=== PATIENT | male | born 1980 | race Caucasian/White ===

== ENCOUNTER 2016-08-10 12:14 | Emergency (ER) | payer OTHER ==
--- NOTE | 2016-08-10 13:58 | REP ---
Left hand series: Four views. History: Trauma. Findings: Four views of the left hand demonstrate soft tissue swelling dorsally over the metacarpals. No fracture is seen. No opaque foreign body is appreciated. No other change from left wrist views dated November 21, 2014. Impression: Diffuse dorsal soft tissue swelling. No fracture seen. Signed by Rasta López MD 08/10/2016 02:39 P
--- NOTE | 2016-08-10 14:52 | EDDOCDS ---
Physician Documentation [facility] Name: Nate Dave Age: 36 yrs Sex: Male : 1980 Arrival Date: 08/10/2016 Time: 12:14 Bed Triage 2 Private MD: Baljinder - Complete Info On Cds Disposition: 08/10/16 14:43 Discharged to Home/Self Care. Impression: Contusion of left hand. - Condition is Stable. - Discharge Instructions: Hand Contusion. - Medication Reconciliation, Local Pharmacy Hours form. - Follow up: Private Physician; When: As needed; Reason: Recheck today's complaints. Follow up: Emergency Department; When: As needed; Reason: Worsening of conditions. - Problem is new. - Symptoms are unchanged. Historical: - Allergies: no known allergies; - Home Meds: 1. BuSpar 5 mg Oral tab daily (Last dose: 08/09/2016) 2. Citalopram 30mg Oral once daily (Last dose: 08/09/2016) 3. multivitamin Oral cap - PMHx: Depression; - PSHx: Hernia repair; - Social history: Smoking status: Patient states former smoker of tobacco. No barriers to communication noted, The patient speaks fluent [place] Leonean. - Family history: Not pertinent. - : The pt / caregiver states he / she is not on anticoagulants. Home medication list is obtained from the patient. - Exposure Risk Screening:: pt states went to [facility] last month. Vital Signs: 08/10 12:19 BP 117 / 66 RA Sitting (auto/reg); Pulse 70 RA; Resp 18 S; Temp 97.1(T); Pulse Ox 98% mt4 on R/A; Weight 106.59 kg / 234.99 lbs (R); Height 74 in. (187.96 cm) (R); Pain 1/10; 14:50 BP 139 / 71; Pulse 66; Resp 16; Pulse Ox 98% on R/A; Pain 1/10; kr3 12:19 Body Mass Index 30.17 (106.59 kg, 187.96 cm) mt4 MDM: 12:33 Hand, Complete Ordered. EDMS Signatures: Dispatcher [employer] EDMS Fatmata Miller RN RN kr3 Manuel Garza PAColbyC PA-C ar2 Daniel Cade RN RN jf3 The chart was reviewed and I authenticate all verbal orders and agree with the evaluation and treatment provided.Corrections: (The following items were deleted from the chart) 12:30 12:29 Exposure Risk Screening: None identified. jf3 jf3 MTDD
--- NOTE | 2016-08-10 14:53 | EDDOCDS ---
Nurse's Notes [facility] Name: Nate Dave Age: 36 yrs Sex: Male : 1980 Arrival Date: 08/10/2016 Time: 12:14 Bed Triage 2 Private MD: Other - Complete Info On Cds Diagnosis: Contusion of left hand Presentation: 08/10 12:26 Presenting complaint: Patient states: "I think I broke my hand. I was moving some boxes jf3 yesterday and I ran into a wall". Left hand affected. Incident happened at approx 1100. Adult Sepsis Screening: The patient does not have new or worsening altered mentation. Patient's respiratory rate is less than 22. Systolic blood pressure is greater than 100. Patient has a qSOFA score of 0- Negative Sepsis Screen. Suicide/Homicide risk assessment- the patient denies having any suicidal and/or homicidal ideations and does not present with any other emotional, behavioral or mental health complaints. Status: The patient is an active duty human services assistant. Transition of care: patient was not received from another setting of care. 12:26 Acuity: QING Level 4 jf3 12:26 Method Of Arrival: Walkin/Carried/Asstd jf3 Triage Assessment: 12:29 General: Appears in no apparent distress, comfortable, Behavior is cooperative. Pain: jf3 Location: left hand Pain currently is 1 out of 10 on a pain scale. Pt Declines HIV testing. Musculoskeletal: Circulation, motion, and sensation intact Capillary refill < 3 seconds Swelling present in dorsum of left hand. Historical: - Allergies: no known allergies; - Home Meds: 1. BuSpar 5 mg Oral tab daily (Last dose: 08/09/2016) 2. Citalopram 30mg Oral once daily (Last dose: 08/09/2016) 3. multivitamin Oral cap - PMHx: Depression; - PSHx: Hernia repair; - Social history: Smoking status: Patient states former smoker of tobacco. No barriers to communication noted, The patient speaks fluent Vietnamese. - Family history: Not pertinent. - : The pt / caregiver states he / she is not on anticoagulants. Home medication list is obtained from the patient. - Exposure Risk Screening:: pt states went to [facility] last month. Screenin:50 Screening information is obtained from the patient. Fall risk: No risks identified. kr3 Assistance ADL's: requires no assistance with activities of daily living. Abuse/DV Screen: The patient / caregiver reports he/she is: not in a situation that causes fear, pain or injury. Nutritional screening: No deficits noted. Advance Directives: Currently, there is no health care proxy. home support is adequate. Assessment: 14:51 Reassessment: Patient appears in no apparent distress at this time. Musculoskeletal: kr3 Range of motion intact in all extremities. Vital Signs: 12:19 BP 117 / 66 RA Sitting (auto/reg); Pulse 70 RA; Resp 18 S; Temp 97.1(T); Pulse Ox 98% mt4 on R/A; Weight 106.59 kg (R); Height 74 in. (187.96 cm) (R); Pain 1/10; 14:50 BP 139 / 71; Pulse 66; Resp 16; Pulse Ox 98% on R/A; Pain 1/10; kr3 12:19 Body Mass Index 30.17 (106.59 kg, 187.96 cm) mt4 Vitals: 12:19 Log In Time: August 10, 2016 at 12:14. mt4 ED Course: 12:18 Patient visited by Federica Meza. mt4 12:18 Other - Complete Info On Cds is Private Physician. mt4 12:18 Patient moved to Waiting mt4 12:20 Patient moved to Pre RCE mt4 12:28 Triage Initiated jf3 14:12 Patient moved to Triage 2 sew 14:34 Hand, Complete Returned. EDMS 14:36 [facility] ar2 14:36 Dean Boland MD is Attending Physician. ar2 14:36 Patient visited by Manuel Garza PA-C. ar2 14:51 The patient / caregiver is instructed regarding the plan of care and ED course. Patient kr3 has correct armband on for positive identification. 14:51 No IV's were initiated during this patient's visit. No procedures done that require kr3 assistance. Order Results: Radiology Order: Hand, Complete Test: Hand, Complete REASON FOR EXAMINATION: Trauma; Left hand series: Four views.; ; History: Trauma.; ; Findings: Four views of the left hand demonstrate soft tissue swelling dorsally; over the metacarpals. No fracture is seen. No opaque foreign body is; appreciated. No other change from left wrist views dated November 21, 2014.; ; Impression:; ; Diffuse dorsal soft tissue swelling. No fracture seen.; ; ; ; ; Unreviewed; Outcome: 14:43 Discharge ordered by Provider. ar2 14:50 Discharge Assessment: patient administered narcotics - no. The following High Risk kr3 Discharge criteria are identified: None. Discharged to home ambulatory. Condition: stable. Discharge instructions given to patient, Instructed on discharge instructions, follow up and referral plans. Demonstrated understanding of instructions, Pt was receptive of discharge instructions/ teaching. No special radiology studies were completed. Property sent home with patient. 14:51 Patient left the ED. kr3 Signatures: Dispatcher [employer] EDMS Fatmata MillerRN RN kr3 Manuel Garza, ALMA PA-C ar2 Federica Meza mt4 Bibi Aguillon Justin,RN RN jf3 Corrections: (The following items were deleted from the chart) 12:30 12:29 Exposure Risk Screening: None identified. jf3 jf3 MTDD
--- NOTE | 2016-08-12 15:52 | EDDOCDS ---
Nurse's Notes [facility] Name: Nate Dave Age: 36 yrs Sex: Male : 1980 Arrival Date: 08/10/2016 Time: 12:14 Bed Triage 2 Private MD: Other - Complete Info On Cds Diagnosis: Contusion of left hand Presentation: 08/10 12:26 Presenting complaint: Patient states: "I think I broke my hand. I was moving some boxes jf3 yesterday and I ran into a wall". Left hand affected. Incident happened at approx 1100. Adult Sepsis Screening: The patient does not have new or worsening altered mentation. Patient's respiratory rate is less than 22. Systolic blood pressure is greater than 100. Patient has a qSOFA score of 0- Negative Sepsis Screen. Suicide/Homicide risk assessment- the patient denies having any suicidal and/or homicidal ideations and does not present with any other emotional, behavioral or mental health complaints. Status: The patient is an active duty division service manager. Transition of care: patient was not received from another setting of care. 12:26 Acuity: QING Level 4 jf3 12:26 Method Of Arrival: Walkin/Carried/Asstd jf3 Triage Assessment: 12:29 General: Appears in no apparent distress, comfortable, Behavior is cooperative. Pain: jf3 Location: left hand Pain currently is 1 out of 10 on a pain scale. Pt Declines HIV testing. Musculoskeletal: Circulation, motion, and sensation intact Capillary refill < 3 seconds Swelling present in dorsum of left hand. Historical: - Allergies: no known allergies; - Home Meds: 1. BuSpar 5 mg Oral tab daily (Last dose: 08/09/2016) 2. Citalopram 30mg Oral once daily (Last dose: 08/09/2016) 3. multivitamin Oral cap - PMHx: Depression; - PSHx: Hernia repair; - Social history: Smoking status: Patient states former smoker of tobacco. No barriers to communication noted, The patient speaks fluent Yoruba. - Family history: Not pertinent. - : The pt / caregiver states he / she is not on anticoagulants. Home medication list is obtained from the patient. - Exposure Risk Screening:: pt states went to [facility] last month. Screenin:50 Screening information is obtained from the patient. Fall risk: No risks identified. kr3 Assistance ADL's: requires no assistance with activities of daily living. Abuse/DV Screen: The patient / caregiver reports he/she is: not in a situation that causes fear, pain or injury. Nutritional screening: No deficits noted. Advance Directives: Currently, there is no health care proxy. home support is adequate. Assessment: 14:51 Reassessment: Patient appears in no apparent distress at this time. Musculoskeletal: kr3 Range of motion intact in all extremities. Vital Signs: 12:19 BP 117 / 66 RA Sitting (auto/reg); Pulse 70 RA; Resp 18 S; Temp 97.1(T); Pulse Ox 98% mt4 on R/A; Weight 106.59 kg (R); Height 74 in. (187.96 cm) (R); Pain 1/10; 14:50 BP 139 / 71; Pulse 66; Resp 16; Pulse Ox 98% on R/A; Pain 1/10; kr3 12:19 Body Mass Index 30.17 (106.59 kg, 187.96 cm) mt4 Vitals: 12:19 Log In Time: August 10, 2016 at 12:14. mt4 ED Course: 12:18 Patient visited by Federica Meza. mt4 12:18 Other - Complete Info On Cds is Private Physician. mt4 12:18 Patient moved to Waiting mt4 12:20 Patient moved to Pre RCE mt4 12:28 Triage Initiated jf3 14:12 Patient moved to Triage 2 sew 14:34 Hand, Complete Returned. EDMS 14:36 [facility] ar2 14:36 Dean Boland MD is Attending Physician. ar2 14:36 Patient visited by Manuel Garza PA-C. ar2 14:51 The patient / caregiver is instructed regarding the plan of care and ED course. Patient kr3 has correct armband on for positive identification. 14:51 No IV's were initiated during this patient's visit. No procedures done that require kr3 assistance. 15:23 [facility] [place] was scanned into [employer] and attached to record. jls1 16:10 T-Sheet-- Draft Copy was scanned into [employer] and attached to record. klr Order Results: Radiology Order: Hand, Complete Test: Hand, Complete REASON FOR EXAMINATION: Trauma; Left hand series: Four views.; ; History: Trauma.; ; Findings: Four views of the left hand demonstrate soft tissue swelling dorsally; over the metacarpals. No fracture is seen. No opaque foreign body is; appreciated. No other change from left wrist views dated November 21, 2014.; ; Impression:; ; Diffuse dorsal soft tissue swelling. No fracture seen.; ; ; Signed by; Rasta López MD 08/10/2016 02:39 P; Outcome: 14:43 Discharge ordered by Provider. ar2 14:50 Discharge Assessment: patient administered narcotics - no. The following High Risk kr3 Discharge criteria are identified: None. Discharged to home ambulatory. Condition: stable. Discharge instructions given to patient, Instructed on discharge instructions, follow up and referral plans. Demonstrated understanding of instructions, Pt was receptive of discharge instructions/ teaching. No special radiology studies were completed. Property sent home with patient. 14:51 Patient left the ED. kr3 Signatures: Dispatcher [employer] EDMS Fatmata Miller RN RN kr3 Manuel Garza, ALMA PA-C ar2 Federica Meza mt4 Bibi Aguillon Jennifer jls1 Daniel Cade,RN RN jf3 Abigail Duncan Corrections: (The following items were deleted from the chart) 12:30 12:29 Exposure Risk Screening: None identified. jf3 jf3 Chart Complete MTDD
--- NOTE | 2016-08-12 15:52 | EDDOCDS ---
Physician Documentation [facility] Name: Nate Dave Age: 36 yrs Sex: Male : 1980 Arrival Date: 08/10/2016 Time: 12:14 Bed Triage 2 Private MD: Baljinder - Complete Info On Cds Disposition: 08/10/16 14:43 Discharged to Home/Self Care. Impression: Contusion of left hand. - Condition is Stable. - Discharge Instructions: Hand Contusion. - Medication Reconciliation, Local Pharmacy Hours form. - Follow up: Private Physician; When: As needed; Reason: Recheck today's complaints. Follow up: Emergency Department; When: As needed; Reason: Worsening of conditions. - Problem is new. - Symptoms are unchanged. Historical: - Allergies: no known allergies; - Home Meds: 1. BuSpar 5 mg Oral tab daily (Last dose: 08/09/2016) 2. Citalopram 30mg Oral once daily (Last dose: 08/09/2016) 3. multivitamin Oral cap - PMHx: Depression; - PSHx: Hernia repair; - Social history: Smoking status: Patient states former smoker of tobacco. No barriers to communication noted, The patient speaks fluent [place] Citizen. - Family history: Not pertinent. - : The pt / caregiver states he / she is not on anticoagulants. Home medication list is obtained from the patient. - Exposure Risk Screening:: pt states went to [facility] last month. Vital Signs: 08/10 12:19 BP 117 / 66 RA Sitting (auto/reg); Pulse 70 RA; Resp 18 S; Temp 97.1(T); Pulse Ox 98% mt4 on R/A; Weight 106.59 kg / 234.99 lbs (R); Height 74 in. (187.96 cm) (R); Pain 1/10; 14:50 BP 139 / 71; Pulse 66; Resp 16; Pulse Ox 98% on R/A; Pain 1/10; kr3 12:19 Body Mass Index 30.17 (106.59 kg, 187.96 cm) mt4 MDM: 12:33 Hand, Complete Ordered. EDMS 15:23 [facility] [place] Agreement was scanned into [employer] and attached to record. jls1 16:10 T-Sheet-- Draft Copy was scanned into [employer] and attached to record. klr Signatures: Dispatcher [employer] Fatmata Corona RN RN kr3 Manuel Garza, ALMA PATripp herring2 Mayra Cuellar jls1 Daniel Cade RN RN jf3 Abigail Duncan The chart was reviewed and I authenticate all verbal orders and agree with the evaluation and treatment provided.Corrections: (The following items were deleted from the chart) 12:30 12:29 Exposure Risk Screening: None identified. denny baldwin Attachments: 15:23 [facility] [place] Agreement jls1 16:10 T-Sheet-- Draft Copy klr Chart Complete MTDD
--- NOTE | 2016-08-12 15:52 | EDDOCDS ---
Physician Documentation [facility] Name: Nate Dave Age: 36 yrs Sex: Male : 1980 Arrival Date: 08/10/2016 Time: 12:14 Bed Triage 2 Private MD: Baljinder - Complete Info On Cds Disposition: 08/10/16 14:43 Discharged to Home/Self Care. Impression: Contusion of left hand. - Condition is Stable. - Discharge Instructions: Hand Contusion. - Medication Reconciliation, Local Pharmacy Hours form. - Follow up: Private Physician; When: As needed; Reason: Recheck today's complaints. Follow up: Emergency Department; When: As needed; Reason: Worsening of conditions. - Problem is new. - Symptoms are unchanged. Historical: - Allergies: no known allergies; - Home Meds: 1. BuSpar 5 mg Oral tab daily (Last dose: 08/09/2016) 2. Citalopram 30mg Oral once daily (Last dose: 08/09/2016) 3. multivitamin Oral cap - PMHx: Depression; - PSHx: Hernia repair; - Social history: Smoking status: Patient states former smoker of tobacco. No barriers to communication noted, The patient speaks fluent [place] Islander. - Family history: Not pertinent. - : The pt / caregiver states he / she is not on anticoagulants. Home medication list is obtained from the patient. - Exposure Risk Screening:: pt states went to [facility] last month. Vital Signs: 08/10 12:19 BP 117 / 66 RA Sitting (auto/reg); Pulse 70 RA; Resp 18 S; Temp 97.1(T); Pulse Ox 98% mt4 on R/A; Weight 106.59 kg / 234.99 lbs (R); Height 74 in. (187.96 cm) (R); Pain 1/10; 14:50 BP 139 / 71; Pulse 66; Resp 16; Pulse Ox 98% on R/A; Pain 1/10; kr3 12:19 Body Mass Index 30.17 (106.59 kg, 187.96 cm) mt4 MDM: 12:33 Hand, Complete Ordered. EDMS 15:23 [facility] [place] Payment Agreement was scanned into [employer] and attached to record. jls1 16:10 T-Sheet-- Draft Copy was scanned into [employer] and attached to record. klr Signatures: Dispatcher [employer] Fatmata Corona RN RN kr3 Manuel Garza, ALMA PATripp herring2 Mayra Cuellar jls1 Daniel Cade RN RN jf3 Abigail Duncan The chart was reviewed and I authenticate all verbal orders and agree with the evaluation and treatment provided.Corrections: (The following items were deleted from the chart) 12:30 12:29 Exposure Risk Screening: None identified. denny baldwin Attachments: 15:23 [facility] [place] Payment Agreement jls1 16:10 T-Sheet-- Draft Copy klr Chart Complete MTDD
--- NOTE | 2016-08-14 08:47 | EDDOCDS ---
Nurse's Notes [facility] Name: Nate Dave Age: 36 yrs Sex: Male : 1980 Arrival Date: 08/10/2016 Time: 12:14 Bed Triage 2 Private MD: Other - Complete Info On Cds Diagnosis: Contusion of left hand Presentation: 08/10 12:26 Presenting complaint: Patient states: "I think I broke my hand. I was moving some boxes jf3 yesterday and I ran into a wall". Left hand affected. Incident happened at approx 1100. Adult Sepsis Screening: The patient does not have new or worsening altered mentation. Patient's respiratory rate is less than 22. Systolic blood pressure is greater than 100. Patient has a qSOFA score of 0- Negative Sepsis Screen. Suicide/Homicide risk assessment- the patient denies having any suicidal and/or homicidal ideations and does not present with any other emotional, behavioral or mental health complaints. Status: The patient is an active duty service desk team lead. Transition of care: patient was not received from another setting of care. 12:26 Acuity: QING Level 4 jf3 12:26 Method Of Arrival: Walkin/Carried/Asstd jf3 Triage Assessment: 12:29 General: Appears in no apparent distress, comfortable, Behavior is cooperative. Pain: jf3 Location: left hand Pain currently is 1 out of 10 on a pain scale. Pt Declines HIV testing. Musculoskeletal: Circulation, motion, and sensation intact Capillary refill < 3 seconds Swelling present in dorsum of left hand. Historical: - Allergies: no known allergies; - Home Meds: 1. BuSpar 5 mg Oral tab daily (Last dose: 08/09/2016) 2. Citalopram 30mg Oral once daily (Last dose: 08/09/2016) 3. multivitamin Oral cap - PMHx: Depression; - PSHx: Hernia repair; - Social history: Smoking status: Patient states former smoker of tobacco. No barriers to communication noted, The patient speaks fluent Kyrgyz. - Family history: Not pertinent. - : The pt / caregiver states he / she is not on anticoagulants. Home medication list is obtained from the patient. - Exposure Risk Screening:: pt states went to [facility] last month. Screenin:50 Screening information is obtained from the patient. Fall risk: No risks identified. kr3 Assistance ADL's: requires no assistance with activities of daily living. Abuse/DV Screen: The patient / caregiver reports he/she is: not in a situation that causes fear, pain or injury. Nutritional screening: No deficits noted. Advance Directives: Currently, there is no health care proxy. home support is adequate. Assessment: 14:51 Reassessment: Patient appears in no apparent distress at this time. Musculoskeletal: kr3 Range of motion intact in all extremities. Vital Signs: 12:19 BP 117 / 66 RA Sitting (auto/reg); Pulse 70 RA; Resp 18 S; Temp 97.1(T); Pulse Ox 98% mt4 on R/A; Weight 106.59 kg (R); Height 74 in. (187.96 cm) (R); Pain 1/10; 14:50 BP 139 / 71; Pulse 66; Resp 16; Pulse Ox 98% on R/A; Pain 1/10; kr3 12:19 Body Mass Index 30.17 (106.59 kg, 187.96 cm) mt4 Vitals: 12:19 Log In Time: August 10, 2016 at 12:14. mt4 ED Course: 12:18 Patient visited by Federica Meza. mt4 12:18 Other - Complete Info On Cds is Private Physician. mt4 12:18 Patient moved to Waiting mt4 12:20 Patient moved to Pre RCE mt4 12:28 Triage Initiated jf3 14:12 Patient moved to Triage 2 sew 14:34 Hand, Complete Returned. EDMS 14:36 Manuel Garza [facility]-C [facility] ar2 14:36 Dean Boland MD is Attending Physician. ar2 14:36 Patient visited by Manuel Garza PA-C. ar2 14:51 The patient / caregiver is instructed regarding the plan of care and ED course. Patient kr3 has correct armband on for positive identification. 14:51 No IV's were initiated during this patient's visit. No procedures done that require kr3 assistance. 15:23 [facility] [place] Payment Agreement was scanned into [employer] and attached to record. jls1 16:10 T-Sheet-- Draft Copy was scanned into [employer] and attached to record. klr Order Results: Radiology Order: Hand, Complete Test: Hand, Complete REASON FOR EXAMINATION: Trauma; Left hand series: Four views.; ; History: Trauma.; ; Findings: Four views of the left hand demonstrate soft tissue swelling dorsally; over the metacarpals. No fracture is seen. No opaque foreign body is; appreciated. No other change from left wrist views dated November 21, 2014.; ; Impression:; ; Diffuse dorsal soft tissue swelling. No fracture seen.; ; ; Signed by; Rasta López MD 08/10/2016 02:39 P; Outcome: 14:43 Discharge ordered by Provider. ar2 14:50 Discharge Assessment: patient administered narcotics - no. The following High Risk kr3 Discharge criteria are identified: None. Discharged to home ambulatory. Condition: stable. Discharge instructions given to patient, Instructed on discharge instructions, follow up and referral plans. Demonstrated understanding of instructions, Pt was receptive of discharge instructions/ teaching. No special radiology studies were completed. Property sent home with patient. 14:51 Patient left the ED. kr3 Signatures: Dispatcher [employer] EDMS Fatmata Miller RN RN kr3 Manuel Garza, AL[place] PA-C ar2 Federica Meza mt4 Bibi Aguillon Jennifer jls1 Daniel Cade,RN RN jf3 Abigail Duncan Corrections: (The following items were deleted from the chart) 12:30 12:29 Exposure Risk Screening: None identified. jf3 jf3 Chart Complete MTDD
--- NOTE | 2016-08-14 08:47 | EDDOCDS ---
Physician Documentation [facility] Name: Naet Dave Age: 36 yrs Sex: Male : 1980 Arrival Date: 08/10/2016 Time: 12:14 Bed Triage 2 Private MD: Baljinder - Complete Info On Cds Disposition: 08/10/16 14:43 Discharged to Home/Self Care. Impression: Contusion of left hand. - Condition is Stable. - Discharge Instructions: Hand Contusion. - Medication Reconciliation, Local Pharmacy Hours form. - Follow up: Private Physician; When: As needed; Reason: Recheck today's complaints. Follow up: Emergency Department; When: As needed; Reason: Worsening of conditions. - Problem is new. - Symptoms are unchanged. Historical: - Allergies: no known allergies; - Home Meds: 1. BuSpar 5 mg Oral tab daily (Last dose: 08/09/2016) 2. Citalopram 30mg Oral once daily (Last dose: 08/09/2016) 3. multivitamin Oral cap - PMHx: Depression; - PSHx: Hernia repair; - Social history: Smoking status: Patient states former smoker of tobacco. No barriers to communication noted, The patient speaks fluent Congolese. - Family history: Not pertinent. - : The pt / caregiver states he / she is not on anticoagulants. Home medication list is obtained from the patient. - Exposure Risk Screening:: pt states went to [facility] last month. Vital Signs: 08/10 12:19 BP 117 / 66 RA Sitting (auto/reg); Pulse 70 RA; Resp 18 S; Temp 97.1(T); Pulse Ox 98% mt4 on R/A; Weight 106.59 kg / 234.99 lbs (R); Height 74 in. (187.96 cm) (R); Pain 1/10; 14:50 BP 139 / 71; Pulse 66; Resp 16; Pulse Ox 98% on R/A; Pain 1/10; kr3 12:19 Body Mass Index 30.17 (106.59 kg, 187.96 cm) mt4 MDM: 12:33 Hand, Complete Ordered. EDMS 15:23 [facility] [place] was scanned into [employer] and attached to record. [email or web address] 16:10 T-Sheet-- Draft Copy was scanned into [employer] and attached to record. klr Signatures: Dispatcher [employer] Fatmata Corona RN RN kr3 Manuel Garza, [place] PATripp herring2 Mayra Cuellar jls1 Daniel Cade RN RN jf3 Abigail Duncan The chart was reviewed and I authenticate all verbal orders and agree with the evaluation and treatment provided.Corrections: (The following items were deleted from the chart) 12:30 12:29 Exposure Risk Screening: None identified. denny baldwin Attachments: 15:23 [facility] [place] [email or web address] 16:10 T-Sheet-- Draft Copy klr Chart Complete MTDD
--- NOTE | 2016-08-14 08:47 | EDDOCDS ---
Physician Documentation [facility] Name: Nate Dave Age: 36 yrs Sex: Male : 1980 Arrival Date: 08/10/2016 Time: 12:14 Bed Triage 2 Private MD: Baljinder - Complete Info On Cds Disposition: 08/10/16 14:43 Discharged to Home/Self Care. Impression: Contusion of left hand. - Condition is Stable. - Discharge Instructions: Hand Contusion. - Medication Reconciliation, Local Pharmacy Hours form. - Follow up: Private Physician; When: As needed; Reason: Recheck today's complaints. Follow up: Emergency Department; When: As needed; Reason: Worsening of conditions. - Problem is new. - Symptoms are unchanged. Historical: - Allergies: no known allergies; - Home Meds: 1. BuSpar 5 mg Oral tab daily (Last dose: 08/09/2016) 2. Citalopram 30mg Oral once daily (Last dose: 08/09/2016) 3. multivitamin Oral cap - PMHx: Depression; - PSHx: Hernia repair; - Social history: Smoking status: Patient states former smoker of tobacco. No barriers to communication noted, The patient speaks fluent [place]ian. - Family history: Not pertinent. - : The pt / caregiver states he / she is not on anticoagulants. Home medication list is obtained from the patient. - Exposure Risk Screening:: pt states went to [facility] last month. Vital Signs: 08/10 12:19 BP 117 / 66 RA Sitting (auto/reg); Pulse 70 RA; Resp 18 S; Temp 97.1(T); Pulse Ox 98% mt4 on R/A; Weight 106.59 kg / 234.99 lbs (R); Height 74 in. (187.96 cm) (R); Pain 1/10; 14:50 BP 139 / 71; Pulse 66; Resp 16; Pulse Ox 98% on R/A; Pain 1/10; kr3 12:19 Body Mass Index 30.17 (106.59 kg, 187.96 cm) mt4 MDM: 12:33 Hand, Complete Ordered. EDMS 15:23 [facility] [place] was scanned into [employer] and attached to record. [email or web address] 16:10 T-Sheet-- Draft Copy was scanned into [employer] and attached to record. klr Signatures: Dispatcher [employer] Fatmata Corona RN RN kr3 Manuel Garza, [place] PATripp herring2 Mayra Cuellar jls1 Daniel Cade RN RN jf3 Abigail Duncan The chart was reviewed and I authenticate all verbal orders and agree with the evaluation and treatment provided.Corrections: (The following items were deleted from the chart) 12:30 12:29 Exposure Risk Screening: None identified. denny baldwin Attachments: 15:23 [facility] [place] [email or web address] 16:10 T-Sheet-- Draft Copy klr Chart Complete MTDD
== END 2016-08-10 14:51 | disposition home or self-care (01) ==
LOC: M ED 12:14
DX: S60.222A Contusion of left hand, initial encounter (principal); W22.01XA Walked into wall, initial encounter; Y92.018 Other place in single-family (private) house as the place of occurrence of the external cause; Y93.89 Activity, other specified; Y99.8 Other external cause status; F32.9 Major depressive disorder, single episode, unspecified; Z87.891 Personal history of nicotine dependence; Z79.899 Other long term (current) drug therapy

== ENCOUNTER 2023-10-05 20:58 | Emergency (ER) | payer OTHER ==
[~2023-10-05] VITALS: Ht 188 cm; Wt 139.7 kg
[2023-10-05 22:16] LABS: RSV AMPLIFICATION NEGATIVE (NEGATIVE)
[2023-10-05 23:25] VITALS: BP 144/92; TEMP 100.9; O2SAT 98
== END 2023-10-05 23:32 | disposition home or self-care (01) ==
LOC: M ED 20:58
DX: J09.X2 Influenza due to identified novel influenza A virus with other respiratory manifestations (principal); I10 Essential (primary) hypertension; K58.9 Irritable bowel syndrome, unspecified; F10.10 Alcohol abuse, uncomplicated